=== PATIENT | male | born 1985 | race Caucasian/White ===

== ENCOUNTER 2017-01-28 09:18 | Inpatient (IN) | payer BC ==
[~2017-01-28] VITALS: Ht 170.2 cm; Wt 86.6 kg
[2017-01-28 09:20] VITALS: BP 117/60
[2017-01-28 09:47] LABS: BASO # 0.1 10*3/uL (0.0-0.1); BASO % 0.7 % (0.0-1.0); EOS # 0.1 10*3/uL (0.0-0.4); EOS % 0.8 % (1.0-4.0); HEMATOCRIT 43.6 % (42.0-52.0); HEMOGLOBIN 15.5 g/dl (14.0-18.0); LYMPH % 27.8 % (27.0-41.0); MEAN CELL VOLUME 85.2 fl (80.0-94.0); MEAN CORPUSCULAR HGB 30.3 pg (27.0-31.0); MEAN CORPUSCULAR HGB CONC 35.6 g/dl (33.0-37.0); MEAN PLATELET VOLUME 9.7 fl (9.6-12.3); MONO # 0.7 10*3/uL (0.1-1.0); MONO % 9.3 % (3.0-9.0); NEUT # 4.5 10*3/uL (2.3-7.9); NEUT % 61.1 % (47.0-73.0); PLATELET COUNT AUTOMATED 212 10*3/uL (130-400); RED BLOOD COUNT 5.12 10*6/uL (4.50-5.90); WHITE BLOOD COUNT 7.3 10*3/uL (4.8-10.8)
[2017-01-28 09:54] LABS: INTERNATIONAL NORM RATIO 1.1 (2.0-3.5)
[2017-01-28] MEDS ORDERED: NEURONTIN300 MG PO (10:02)
[2017-01-28] MEDS ORDERED: ADDERALL 20 MG20 MG PO (10:03)
[2017-01-28] MEDS ORDERED: TRAZODONE150 MG PO (10:03)
[2017-01-28 10:07] LABS: BUN 14 mg/dl (7-24); CHLORIDE 103 mmol/L (98-107); CREATININE 1.23 mg/dL (0.70-1.30); LIPASE 177 U/L (73-393); MAGNESIUM 1.9 mg/dL (1.5-2.1); POTASSIUM 3.4 mmol/L (3.5-5.1); SGOT/AST 18 IU/L (3-35); SGPT/ALT 26 U/L (12-78); SODIUM 139 mmol/L (136-145)
[2017-01-28 10:08] LABS: ALKALINE PHOSPHATASE 17 U/L (45-117); CPK 180 U/L (39-308); TOTAL PROTEIN 7.8 gm/dL (6.4-8.2)
[2017-01-28 10:10] LABS: ETHYL ALCOHOL < 3.0 mg/dl (<3); TROPONIN I < 0.015 ng/ml (<0.045)
[2017-01-28 10:54] LABS: BILIRUBIN NEGATIVE (NEGATIVE); BLOOD NEGATIVE (NEGATIVE); CLARITY CLOUDY (CLEAR); COLOR YELLOW (YELLOW); GLUCOSE NEGATIVE (NEGATIVE); KETONE NEGATIVE (NEGATIVE); LEUKO ESTERASE NEGATIVE (NEGATIVE); NITRITE NEGATIVE (NEGATIVE); PH 8.5 (5.0-9.0); SPECIFIC GRAVITY 1.015 (1.005-1.030); UROBILINOGEN 0.2 E.U./dl (0.2-1.0)
[2017-01-28 11:02] LABS: MUCOUS TRACE
[2017-01-28 11:09] LABS: URINE AMPHETAMINES < 1000 (1000ng/ml); URINE BARBITURATES < 200 (200ng/ml); URINE BENZODIAZEPINES < 200 (200ng/ml); URINE CANNABINOIDS (THC) < 50 (50ng/ml); URINE COCAINE < 300 (300ng/ml); URINE METHADONE < 300 (300ng/ml); URINE OPIATES < 300 (300ng/ml); URINE PHENCYCLIDINE < 25 (25ng/ml)
[2017-01-28 11:30] VITALS: BP 111/67
[2017-01-28 11:53] VITALS: BP 94/57
--- NOTE | 2017-01-28 12:02 | NUR ---
A 31, admitted to , under the services of REGAN Mackey DO with a diagnosis of CHEST PAIN . Chief complaint is CHEST PAIN . Patient arrived via stretcher from ER. Monitor applied. Initial assessment completed. Vital signs taken and recorded. REGAN MACKEY DO notified of admission to the unit. Orders received. See assessment for past medical history, medications and allergies. Patient and/or family oriented to unit. [facility] visitation policy reviewed. Clothing/patient valuable form completed. HELENA CAMP
--- NOTE | 2017-01-28 13:00 | NUR ---
dr hein called and told pt and pt would like to speak with him . dr hein states that he cant right now and wont be able to for some time. pt and family notified
[2017-01-28 13:35] LABS: CHOLESTEROL 131 mg/dL (<200); HDL CHOLESTEROL 54 mg/dl (40-60); LDL CHOLESTEROL 71 mg/dL (9-159); PHOSPHOROUS 3.6 mg/dL (2.5-4.9); TRIGLYCERIDES 28 mg/dl (<150); VLDL CHOLESTEROL 6 mg/dL (6-40)
[2017-01-28 13:38] LABS: TROPONIN I < 0.015 ng/ml (<0.045)
[2017-01-28 14:03] LABS: VITAMIN D, 25-HYDROXY 41.2 ng/mL (30-100)
--- NOTE | 2017-01-28 14:40 | NUR ---
pt left ama, with pt. dr hein and claire nursing supervisor plate pasting notified
== END 2017-01-28 14:40 | disposition left against medical advice (07) | DRG 392 ==
LOC: ED 09:18 → EDHOLD 11:09 → 5E 11:26
PROVIDERS: Internal Medicine; Internal Medicine Hospice and Palliative Medicine; ADMIT Emergency Medicine
DX: R11.2 Nausea with vomiting, unspecified (principal); E87.2 Acidosis; E67.8 Other specified hyperalimentation; D71 Functional disorders of polymorphonuclear neutrophils; E87.6 Hypokalemia; R73.9 Hyperglycemia, unspecified; G47.00 Insomnia, unspecified; G25.81 Restless legs syndrome; F90.9 Attention-deficit hyperactivity disorder, unspecified type; Z53.21 Procedure and treatment not carried out due to patient leaving prior to being seen by health care provider; Z80.7 Family history of other malignant neoplasms of lymphoid, hematopoietic and related tissues; Z88.8 Allergy status to other drugs, medicaments and biological substances